=== PATIENT | female | born 1955 | race African-American/Black ===

== ENCOUNTER 2016-12-01 22:02 | Observation (INO) | payer MEDICARE, MEDICAID ==
[~2016-12-01] VITALS: Ht 167.6 cm; Wt 89.8 kg
[2016-12-01] MEDS ORDERED: SODIUM CHLORIDE 0.9% 1,000 ML IV ONE (22:59)
[2016-12-01] MEDS ORDERED: ONDANSETRON HCL 4MG/2ML VIAL IV ONE (23:00)
[2016-12-01] MEDS ORDERED: MORPHINE SULFATE 4 MG/ML CPJ (NOT FOR IM USE) IV ONE (23:00)
[2016-12-01 23:30] LABS: BASOPHILS % 0.7 % (0.0-2.0); EOSINOPHILS % 2.3 % (0.0-5.0); HEMOGLOBIN. 13.3 g/dL (12.0-16.0); MEAN CORPUSCULAR HEMOGLOBIN 26.9 pg (28.0-32.0); MEAN CORPUSCULAR VOLUME 81.2 fL (81.0-99.0); MEAN PLATELET VOLUME 7.2 fl (7.4-10.4); MONOCYTES % 9.1 % (2.0-8.0); NEUTROPHILS % 33.9 % (40.0-76.0); PLATELET 321 x1000/uL (130-400); RED BLOOD CELL COUNT 4.93 mill/uL (4.2-5.4); RED CELL DISTRIBUTION WIDTH 17.1 % (11.6-14.6)
[2016-12-01 23:37] LABS: PROTHROMBIN TIME 10.2 sec (9.4-11.6)
[2016-12-01 23:44] LABS: CARBON DIOXIDE 26 mEq/L (21-32); CHLORIDE 109 mEq/L (98-107)
[2016-12-02 00:35] LABS: CLARITY URINE CLEAR (CLEAR); COLOR URINE DARK YELLOW (YELLOW); GLUCOSE URINE NEGATIVE (NEGATIVE); KETONES URINE TRACE (NEGATIVE); LEUKOCYTE ESTERASE URINE NEGATIVE (NEGATIVE); NITRITE URINE NEGATIVE (NEGATIVE); OCCULT BLOOD URINE 2+ (NEGATIVE); PROTEIN URINE NEGATIVE (NEGATIVE); SPECIFIC GRAVITY URINE 1.035 (1.005-1.030)
[2016-12-02] MEDS ORDERED: MORPHINE SULFATE 4 MG/ML CPJ (NOT FOR IM USE) IV NR (01:30)
[2016-12-02] MEDS ORDERED: CLONIDINE 0.1MG TABLET ONE (03:10)
[2016-12-02] MEDS ORDERED: ONDANSETRON HCL 4MG/2ML VIAL IV PRN (03:15)
[2016-12-02] MEDS ORDERED: CLONIDINE 0.1MG TABLET PO PRN (03:15)
[2016-12-02] MEDS ORDERED: MORPHINE SULFATE 4 MG/ML CPJ (NOT FOR IM USE) IV PRN (03:15)
[2016-12-02 03:40] VITALS: BP 175/100
[2016-12-02] MEDS ORDERED: TRAM50TA3 PO (03:50)
[2016-12-02] MEDS ORDERED: ESOM40CA PO (03:53)
[2016-12-02] MEDS ORDERED: CLONIDINE 0.1MG TABLET PO NR (04:30)
[2016-12-02 05:00] VITALS: BP 175/100
[2016-12-02] MEDS: PANTOPRAZOLE 40MG DR TABLET PO SCH (07:04)
[2016-12-02 08:00] VITALS: BP 156/78
[2016-12-02] MEDS: AMLODIPINE 10MG TABLET PO SCH (09:00)
[2016-12-02] MEDS ORDERED: MEDICATION NOT ON FORMULARY EA (Esomeprazole Mag Trihydrate (Nexium) 1 CAP) PO SCH (09:00)
[2016-12-02] MEDS: ACETAMINOPHEN 650MG/20.3ML UDC PO PRN ×2 (11:47→23:44)
[2016-12-02 12:00] VITALS: BP 177/99
[2016-12-02 16:00] VITALS: BP 176/89
[2016-12-02 20:00] VITALS: BP 162/80
[2016-12-03] VITALS: BP 173/77
[2016-12-03 04:00] VITALS: BP 164/89
[2016-12-03] MEDS: ACETAMINOPHEN 650MG/20.3ML UDC PO PRN (07:04)
[2016-12-03] MEDS: PANTOPRAZOLE 40MG DR TABLET PO SCH (07:05)
[2016-12-03 08:00] VITALS: BP 166/88
[2016-12-03] MEDS: AMLODIPINE 10MG TABLET PO SCH (09:01)
[2016-12-03 12:00] VITALS: BP 194/96
== END 2016-12-03 13:00 | disposition home or self-care (01) ==
LOC: ER 22:02 → 6EST 23:46 → INTOOBSV 23:46 → ENRESERV 12-02 02:23
PROVIDERS: ADMIT Family Medicine Adult Medicine; ATTEND Internal Medicine
DX: M51.16 Intervertebral disc disorders with radiculopathy, lumbar region (principal); M48.06 Spinal stenosis, lumbar region; G89.29 Other chronic pain; M21.371 Foot drop, right foot; I10 Essential (primary) hypertension; Z96.651 Presence of right artificial knee joint
CPT/HCPCS: 36415; 51702; 71010; 72131; 72148; 80053; 81001; 85025; 85610; 93005; 96361; 96374; 96375; 96376; 99285; G0378; J2270; J2405; J7030; A4315

== ENCOUNTER 2019-02-15 17:42 | Emergency (ER) | payer MEDICARE, MEDICAID ==
[~2019-02-15] VITALS: Ht 170.2 cm; Wt 80.0 kg
[~2019-02-15 17:42] MED LIST: AMLO2.5T45 MT; ESOM40CA PO; TRAM50TA3 PO
[2019-02-15 17:43] VITALS: BP 174/98
== END 2019-02-15 20:07 | disposition left against medical advice (07) ==
LOC: ER 17:42
DX: Z53.21 Procedure and treatment not carried out due to patient leaving prior to being seen by health care provider (principal)

== ENCOUNTER 2020-10-19 17:07 | Emergency (ER) | payer MEDICARE, MEDICAID ==
[~2020-10-19] VITALS: Ht 167.6 cm; Wt 100.0 kg
[2020-10-19 17:33] LABS: CLARITY URINE CLEAR (CLEAR); COLOR URINE YELLOW (YELLOW); KETONES URINE NEGATIVE (NEGATIVE); LEUKOCYTE ESTERASE URINE NEGATIVE (NEGATIVE); NITRITE URINE NEGATIVE (NEGATIVE); OCCULT BLOOD URINE NEGATIVE (NEGATIVE); PH URINE 5.5 (4.5-8.0); PROTEIN URINE NEGATIVE (NEGATIVE); SPECIFIC GRAVITY URINE 1.005 (1.005-1.030); UROBILINOGEN URINE 0.2 E.U./dL (0.2-1.0)
[2020-10-19 19:45] LABS: BASOPHILS % 0.7 % (0.0-2.0); EOSINOPHILS % 0.6 % (0.0-5.0); HEMATOCRIT. 42.6 % (36.0-48.0); HEMOGLOBIN. 14.5 g/dL (12.0-16.0); LYMPHOCYTES % 33.4 % (20.0-50.0); MEAN CORPUSCULAR HEMOGLOBIN 26.3 pg (28.0-32.0); MEAN CORPUSCULAR VOLUME 77.5 fL (81.0-99.0); MONOCYTES % 4.6 % (2.0-8.0); NEUTROPHILS % 60.7 % (40.0-76.0); RED BLOOD CELL COUNT 5.49 mill/uL (4.2-5.4)
[2020-10-19 19:52] LABS: CHLORIDE 104 mEq/L (98-107)
[2020-10-19] MEDS: ACETAMINOPHEN 325MG TABLET PO ONE ×2 (19:56→20:08)
[2020-10-19 21:14] LABS: MEAN PLATELET VOLUME 7.4 fl (7.4-10.4)
[2020-10-19 21:15] LABS: PLATELET 334 x1000/uL (130-400)
[2020-10-19 21:35] VITALS: BP 164/99
== END 2020-10-19 21:40 | disposition home or self-care (01) ==
LOC: ER 17:07
DX: R05 Cough (principal); I10 Essential (primary) hypertension; Z98.84 Bariatric surgery status
CPT/HCPCS: 36415; 71045; 80053; 81003; 85025; 99285

== ENCOUNTER 2022-04-07 15:29 | Inpatient (IN) | payer MEDICARE, MEDICAID ==
[~2022-04-07] VITALS: Ht 167.6 cm; Wt 90.3 kg
[2022-04-07 17:52] LABS: BASOPHILS % 0.4 % (0.0-2.0); EOSINOPHILS % 0.6 % (0.0-5.0); LYMPHOCYTES % 24.7 % (20.0-50.0); MEAN CORPUSCULAR HEMOGLOBIN 26.1 pg (28.0-32.0); MEAN CORPUSCULAR VOLUME 81.8 fL (81.0-99.0); MEAN PLATELET VOLUME 7.7 fl (7.4-10.4); MONOCYTES % 6.9 % (2.0-8.0); NEUTROPHILS % 67.4 % (40.0-76.0); PLATELET 337 x1000/uL (130-400); RED BLOOD CELL COUNT 5.38 mill/uL (4.2-5.4); RED CELL DISTRIBUTION WIDTH 17.7 % (11.6-14.6)
[2022-04-07 17:59] LABS: PROTHROMBIN TIME 10.6 sec (9.6-11.0)
[2022-04-07 18:00] LABS: CHLORIDE 108 mEq/L (98-107)
[2022-04-07] MEDS ORDERED: ASPIRIN 325MG EC TABLET PO ONE (22:30)
[2022-04-07] MEDS ORDERED: CLONIDINE 0.1MG TABLET PO PRN (23:15)
[2022-04-07] MEDS ORDERED: ACETAMINOPHEN 325MG TABLET PO PRN (23:15)
[2022-04-07] MEDS ORDERED: DIPHENHYDRAMINE 50MG/ML VIAL IV PRN (23:15)
[2022-04-07] MEDS ORDERED: MAGNESIUM/ALUMINUM HYDROXIDE/SIMETHICONE 30ML UDC PO PRN (23:15)
[2022-04-07] MEDS ORDERED: ZOLPIDEM TARTRATE 5MG TABLET PO PRN (23:15)
[2022-04-08] MEDS: ONDANSETRON HCL 4MG/2ML INJ IV PRN (02:10)
[2022-04-08] MEDS: ACETAMINOPHEN 325MG TABLET PO PRN ×2 (02:10→08:37)
[2022-04-08] MEDS ORDERED: NALOXONE HCL 0.4MG/ML VIAL IV PRN (02:45)
[2022-04-08] MEDS ORDERED: METHOCARBAMOL 750MG TABLET PO PRN (03:00)
[2022-04-08] MEDS: TRAMADOL 50MG TABLET PO PRN ×3 (03:13→21:54)
[2022-04-08] MEDS: SODIUM CHLORIDE 0.9% INJ 3ML FLUSH IVF SCH ×2 (06:23→14:00)
[2022-04-08] MEDS: PANTOPRAZOLE 40MG DR TABLET PO SCH ×2 (06:30→21:53)
[2022-04-08] MEDS: AMLODIPINE 5MG TABLET PO SCH (08:37)
[2022-04-08] MEDS: HYDRALAZINE 20MG/ML VIAL IV PRN (08:38)
[2022-04-08] MEDS ORDERED: ENOXAPARIN 40MG/0.4ML SYR SUBCUT SCH (09:00)
[2022-04-08 10:00] VITALS: BP_SYST 147; BP_SYST 258; BP_DIAS 76
[2022-04-08 10:30] VITALS: BP 147/76
[2022-04-08 12:00] VITALS: BP 155/89
[2022-04-08] MEDS ORDERED: REGADENOSON 0.4 MG/5 ML IV ONE (15:00)
[2022-04-08 16:00] VITALS: BP 134/93
[2022-04-08] MEDS: DEXT 5%/0.45% NACL 1000ML 1,000 ML IV SCH (17:00)
[2022-04-08] MEDS: GUAIFENESIN 200MG/10ML SUGAR FREE UDC PO PRN (22:05)
[2022-04-09] VITALS: BP 167/90
[2022-04-09 04:00] VITALS: BP 181/98
[2022-04-09] MEDS: SODIUM CHLORIDE 0.9% INJ 3ML FLUSH IVF SCH ×4 (05:21→20:41)
[2022-04-09] MEDS: HYDRALAZINE 20MG/ML VIAL IV PRN ×2 (05:21→10:47)
[2022-04-09 07:25] LABS: CHLORIDE 110 mEq/L (98-107)
[2022-04-09 08:00] VITALS: BP 179/95
[2022-04-09] MEDS ORDERED: REGADENOSON 0.4 MG/5 ML IV ONE (08:08)
[2022-04-09] MEDS: PANTOPRAZOLE 40MG DR TABLET PO SCH ×2 (10:36→20:41)
[2022-04-09] MEDS: ENOXAPARIN 30MG/0.3ML SYR SUBCUT SCH ×2 (10:42→20:41)
[2022-04-09] MEDS: AMLODIPINE 5MG TABLET PO SCH (10:42)
[2022-04-09] MEDS: DEXT 5%/0.45% NACL 1000ML 1,000 ML IV SCH ×2 (10:48→18:31)
[2022-04-09] MEDS: ONDANSETRON HCL 4MG/2ML INJ IV PRN (10:49)
[2022-04-09 12:00] VITALS: BP 145/79
[2022-04-09] MEDS ORDERED: KETOROLAC 30MG/ML VIAL IV PRN (12:45)
[2022-04-09 16:00] VITALS: BP 155/82
[2022-04-09] MEDS ORDERED: HYDROMORPHONE HCL/PF 2MG/ML CPJ IM PRN (16:45)
[2022-04-09] MEDS ORDERED: DIPHENHYDRAMINE 50MG/ML VIAL IM PRN (16:45)
[2022-04-09 20:00] VITALS: BP 127/67
[2022-04-10] VITALS: BP 128/66
[2022-04-10] MEDS: GUAIFENESIN 200MG/10ML SUGAR FREE UDC PO PRN (03:54)
[2022-04-10 04:00] VITALS: BP 147/88
[2022-04-10] MEDS: SODIUM CHLORIDE 0.9% INJ 3ML FLUSH IVF SCH ×2 (05:12→13:37)
[2022-04-10] MEDS: DEXT 5%/0.45% NACL 1000ML 1,000 ML IV SCH (06:25)
[2022-04-10] MEDS: PANTOPRAZOLE 40MG DR TABLET PO SCH (06:25)
[2022-04-10] MEDS: AMLODIPINE 5MG TABLET PO SCH (08:17)
[2022-04-10] MEDS: ENOXAPARIN 30MG/0.3ML SYR SUBCUT SCH (08:18)
[2022-04-10 08:22] VITALS: BP 158/87
[2022-04-10 11:31] VITALS: BP 156/89
[2022-04-10] MEDS: ACETAMINOPHEN 325MG TABLET PO PRN (12:04)
[2022-04-10 16:05] VITALS: BP 103/76
[2022-04-10 16:14] VITALS: BP 103/76
[2022-04-10] MEDS ORDERED: FAMOTIDINE 20MG TABLET PO SCH (21:00)
== END 2022-04-10 17:45 | disposition home or self-care (01) | DRG 392 ==
LOC: ER 15:29 → MICUSO 23:07 → EDBEDREQTM 23:14 → EDBEDREQ 23:14 → 8WST 04-08 09:31
PROVIDERS: ADMIT Internal Medicine; ATTEND Internal Medicine
DX: K21.9 Gastro-esophageal reflux disease without esophagitis (principal); E86.0 Dehydration; Z20.822 Contact with and (suspected) exposure to COVID-19; I10 Essential (primary) hypertension; E66.9 Obesity, unspecified; Z68.32 Body mass index [BMI] 32.0-32.9, adult; Z98.84 Bariatric surgery status; Z79.899 Other long term (current) drug therapy; R51.9 Headache, unspecified
CPT/HCPCS: 36415; 71045; 78452; 80053; 83880; 84484; 85025; 87426; 87804; 93005; 93017; 93306; 97162; 97166; 99285; A9500; C1893; C9803; J0360; J1170; J1200; J1650; J1885; J2405; J2785

== ENCOUNTER 2022-06-03 13:46 | Emergency (ER) | payer MEDICARE, MEDICAID ==
[~2022-06-03] VITALS: Ht 167.6 cm; Wt 88.0 kg
[2022-06-03] MEDS ORDERED: ACETAMINOPHEN 325MG TABLET PO ONE (14:45)
[2022-06-03] MEDS ORDERED: LIDOCAINE 5% PATCH TOP ONE (14:45)
[2022-06-03] MEDS ORDERED: MORPHINE SULFATE 10 MG/ML CPJ IM ONE (14:45)
[2022-06-03 15:45] VITALS: BP 168/86
[2022-06-03] MEDS ORDERED: LIDOCAINE 5% PATCH TOP NR (15:45)
[2022-06-03] MEDS ORDERED: ACETAMINOPHEN 325MG TABLET PO NR (15:45)
[2022-06-03] MEDS ORDERED: MORPHINE SULFATE 10 MG/ML CPJ IM NR (15:45)
[2022-06-03] MEDS ORDERED: LIDO700A15 TP (19:44)
[2022-06-03] MEDS ORDERED: ACET-2708 MT (19:44)
[2022-06-03] MEDS ORDERED: BACL-141 MT (19:44)
[2022-06-03] MEDS ORDERED: SODIUM CHLORIDE 0.9% 250 ML IV NR (19:45)
== END 2022-06-03 20:00 | disposition home or self-care (01) ==
LOC: ER 13:46
DX: M54.42 Lumbago with sciatica, left side (principal); G89.29 Other chronic pain; I10 Essential (primary) hypertension; Z98.84 Bariatric surgery status; Z87.828 Personal history of other (healed) physical injury and trauma; Z98.890 Other specified postprocedural states
CPT/HCPCS: 72131; 73502; 82962; 96372; 99285; J2270

== ENCOUNTER → 2023-06-30 | Day surgery (SDC) | payer MEDICARE, MEDICAID ==
[~2023-06-30] VITALS: Ht 167.6 cm; Wt 88.5 kg
[~2023-06-30] MED LIST changes: +ALBU4TAB6 NEB; -AMLO2.5T45 MT; +AMLO2.5T45 PO; +CEFAZOLIN SODIUM 1000MG/VIAL ONE; +CETI10TA6 PO; +DEXAMETHASONE 4MG/ML 1ML VIAL ONE; +EPHEDRINE SULFATE 50MG/ML VIAL ONE; -ESOM40CA PO; +FENTANYL CITRATE/PF 50MCG/ML 2ML VIAL ONE; +GARL1000 PO; +GLYCOPYRROLATE 0.2 MG/ML 2ML VIAL ONE; +LOSA25TA26 PO; +MEPERIDINE HCL/PF 25MG/ML CPJ IV PRN; +METH-773 PO; +MIDAZOLAM HCL 2 MG/2 ML VIAL ONE; +OMEP40CA20 PO; +ONDANSETRON HCL 4MG/2ML INJ IV PRN; +ONDANSETRON HCL 4MG/2ML INJ ONE; +PROPOFOL 200MG/20ML VIAL IV ONE; +SUCCINYLCHOLINE CHLORIDE 200MG/10ML IV ONE; +VITAMIN D PO; +[UNRECOGNIZED DRUG - REMARK] PO
[2023-06-30] MEDS: LACTATED RINGERS 1,000 ML IV SCH (08:37)
[2023-06-30] MEDS: FENTANYL CITRATE/PF 50MCG/ML 2ML VIAL IV PRN (10:54)
[2023-06-30] MEDS: HYDROMORPHONE HCL/PF 2MG/ML CPJ IV PRN (11:22)
[2023-06-30 12:03] VITALS: BP 123/74; PULSE 91; RESP 15
== END | disposition home or self-care (01) ==
LOC: OR 07:11
PROVIDERS: ATTEND Obstetrics & Gynecology Obstetrics
DX: N95.0 Postmenopausal bleeding (principal); N84.0 Polyp of corpus uteri; N84.1 Polyp of cervix uteri; I10 Essential (primary) hypertension; M19.90 Unspecified osteoarthritis, unspecified site; Z79.899 Other long term (current) drug therapy; Z98.890 Other specified postprocedural states; Z82.49 Family history of ischemic heart disease and other diseases of the circulatory system; Z83.3 Family history of diabetes mellitus
CPT/HCPCS: 88305; 58558; J3010; J0690; J1100; J3490 ×2; J2250; J2405; J2704; J0330; J1170; A4217 ×3; Z7610 ×17

== ENCOUNTER 2024-09-06 23:13 | Inpatient (IN) | payer MEDICARE, MEDICAID ==
[~2024-09-06] VITALS: Ht 167.6 cm; Wt 60.9 kg
[~2024-09-06 23:13] MED LIST changes: -CEFAZOLIN SODIUM 1000MG/VIAL ONE; -DEXAMETHASONE 4MG/ML 1ML VIAL ONE; -EPHEDRINE SULFATE 50MG/ML VIAL ONE; -FENTANYL CITRATE/PF 50MCG/ML 2ML VIAL ONE; -GARL1000 PO; +GARL10002 PO; -GLYCOPYRROLATE 0.2 MG/ML 2ML VIAL ONE; -MEPERIDINE HCL/PF 25MG/ML CPJ IV PRN; -MIDAZOLAM HCL 2 MG/2 ML VIAL ONE; -ONDANSETRON HCL 4MG/2ML INJ IV PRN; -ONDANSETRON HCL 4MG/2ML INJ ONE; -PROPOFOL 200MG/20ML VIAL IV ONE; -SUCCINYLCHOLINE CHLORIDE 200MG/10ML IV ONE
[2024-09-07 01:45] LABS: CLARITY URINE CLEAR (CLEAR); COLOR URINE YELLOW (YELLOW); GLUCOSE URINE NEGATIVE (NEGATIVE); KETONES URINE NEGATIVE (NEGATIVE); LEUKOCYTE ESTERASE URINE NEGATIVE (NEGATIVE); NITRITE URINE NEGATIVE (NEGATIVE); OCCULT BLOOD URINE NEGATIVE (NEGATIVE); PH URINE 5.5 (4.5-8.0); PROTEIN URINE NEGATIVE (NEGATIVE); SPECIFIC GRAVITY URINE 1.004 (1.005-1.030)
[2024-09-07 01:53] LABS: *AMPHETAMINES SCREEN URINE NEGATIVE (NEGATIVE); *BARBITURATES SCREEN URINE NEGATIVE (NEGATIVE); *BENZODIAZEPINES SCREEN URINE NEGATIVE (NEGATIVE); *COCAINE SCREEN URINE NEGATIVE (NEGATIVE); CANNABINOID URINE SCREEN NEGATIVE (NEGATIVE); ECSTASY MDMA SCREEN URINE NEGATIVE (NEGATIVE); METHADONE URINE SCREEN NEGATIVE (NEGATIVE); OPIATES URINE SCREEN NEGATIVE (NEGATIVE); PHENCYCLIDINE URINE SCREEN NEGATIVE (NEGATIVE)
[2024-09-07] MEDS: SODIUM CHLORIDE 0.9% 500 ML IV NR (02:22)
[2024-09-07 02:29] LABS: BASOPHILS % 0.8 % (0.0-2.0); DIFFERENTIAL COMMENT 0; EOSINOPHILS % 1.4 % (0.0-5.0); HEMATOCRIT. 40.4 % (36.0-48.0); HEMOGLOBIN. 13.7 g/dL (12.0-16.0); LYMPHOCYTES % 57.1 % (20.0-50.0); MEAN CORPUSCULAR HEMOGLOBIN 26.4 pg (28.0-32.0); MEAN CORPUSCULAR VOLUME 77.6 fL (81.0-99.0); MEAN PLATELET VOLUME 7.8 fl (7.4-10.4); MONOCYTES % 8.6 % (2.0-8.0); NEUTROPHILS % 32.1 % (40.0-76.0); PLATELET 337 x1000/uL (130-400); RED BLOOD CELL COUNT 5.21 mill/uL (4.2-5.4); RED CELL DISTRIBUTION WIDTH 19.5 % (11.6-14.6); WHITE BLOOD COUNT 6.5 x1000/uL (4.5-11.0)
[2024-09-07 02:30] LABS: CHLORIDE 103 mEq/L (98-107); SODIUM 142 mEq/L (136-145)
[2024-09-07 02:31] LABS: CARBON DIOXIDE 28 mEq/L (21-32)
[2024-09-07 02:36] LABS: CREATININE 0.8 mg/dL (0.6-1.0); ETHANOL BLOOD < 10 mg/dL (<10); GLUCOSE 80 mg/dL (70-105); UREA NITROGEN BLOOD 6 mg/dL (9-23)
[2024-09-07 02:37] LABS: PARTIAL THROMBOPLASTIN TIME 27.9 sec (23.4-31.0); PROTHROMBIN TIME 10.8 sec (9.6-11.0)
[2024-09-07 03:00] LABS: TROPONIN I HIGH SENSITIVITY 56 ng/L (3.0-34)
[2024-09-07] MEDS: MORPHINE SULFATE 4 MG/ML INJ (FOR IV/IM USE) IV ONE (04:03)
[2024-09-07] MEDS: ASPIRIN 325MG EC TABLET PO ONE (04:03)
[2024-09-07] MEDS: IOHEXOL-300 100 ML BOTTLE ONE (04:23)
[2024-09-07] MEDS: POTASSIUM CHLORIDE 20MEQ/PACKET PO NR ×2 (04:44→10:46)
[2024-09-07] MEDS ORDERED: DOCUSATE SODIUM 100MG CAPSULE PO PRN (09:15)
[2024-09-07] MEDS ORDERED: MAGNESIUM/ALUMINUM HYDROXIDE/SIMETHICONE 30ML UDC PO PRN (09:15)
[2024-09-07] MEDS ORDERED: CLONIDINE 0.1MG TABLET PO PRN (09:15)
[2024-09-07] MEDS ORDERED: GUAIFENESIN 200MG/10ML SUGAR FREE UDC PO PRN (09:15)
[2024-09-07] MEDS ORDERED: ACETAMINOPHEN 325MG TABLET PO PRN ×2 (09:15)
[2024-09-07] MEDS ORDERED: IPRATROPIUM/ALBUTEROL 0.5-3(2.5)MG/3ML NEB HHN PRN (09:15)
[2024-09-07 10:47] VITALS: BP 149/91; PULSE 67; RESP 16; TEMP 36.3; O2SAT 99
[2024-09-07 10:59] VITALS: BP 149/91; PULSE 67; RESP 16; TEMP 36.3
[2024-09-07] MEDS: AMLODIPINE 2.5MG TABLET PO SCH (12:20)
[2024-09-07] MEDS: LOSARTAN 50 MG TABLET PO SCH (12:21)
[2024-09-07] MEDS: LIDOCAINE 5% PATCH TOP SCH (14:37)
[2024-09-07] MEDS ORDERED: TRAM50TA3 PO (15:23)
[2024-09-07] MEDS ORDERED: NALOXONE HCL 0.4MG/ML VIAL IV PRN (15:45)
[2024-09-07 16:00] VITALS: BP 151/87; PULSE 56; RESP 16; TEMP 36.4; O2SAT 100
[2024-09-07 20:00] VITALS: BP 154/88; PULSE 64; RESP 18; TEMP 36.8; O2SAT 100
[2024-09-07 22:37] LABS: CREATINE KINASE MB FRACTION < 0.5 ng/mL (0.5-3.6)
[2024-09-07 22:38] LABS: CREATINE KINASE 34 IU/L (34-145)
[2024-09-07 22:59] LABS: TROPONIN I HIGH SENSITIVITY 56 ng/L (3.0-34)
[2024-09-07] MEDS: TRAMADOL 50MG TABLET PO PRN (23:06)
[2024-09-07] MEDS: ONDANSETRON HCL 4MG/2ML INJ IV PRN (23:07)
[2024-09-08] VITALS: BP 149/75; PULSE 55; RESP 18; TEMP 35.8; O2SAT 100
[2024-09-08 01:40] LABS: CREATINE KINASE MB FRACTION < 0.5 ng/mL (0.5-3.6)
[2024-09-08 01:41] LABS: CREATINE KINASE 32 IU/L (34-145)
[2024-09-08 03:07] LABS: TROPONIN I HIGH SENSITIVITY 60 ng/L (3.0-34)
[2024-09-08 04:00] VITALS: BP 149/82; PULSE 66; RESP 19; TEMP 35.9; O2SAT 99
[2024-09-08 08:00] VITALS: BP 156/85; PULSE 59; RESP 17; TEMP 36.5; O2SAT 97
[2024-09-08] MEDS: PANTOPRAZOLE SODIUM 40 MG/VIAL IV SCH (08:13)
[2024-09-08 08:23] LABS: BASOPHILS % 0.5 % (0.0-2.0); DIFFERENTIAL COMMENT 0; EOSINOPHILS % 3.4 % (0.0-5.0); HEMATOCRIT. 34.6 % (36.0-48.0); HEMOGLOBIN. 11.6 g/dL (12.0-16.0); LYMPHOCYTES % 65.4 % (20.0-50.0); MEAN CORPUSCULAR HEMOGLOBIN 25.8 pg (28.0-32.0); MEAN CORPUSCULAR HGB CONC 33.6 g/dL (31.0-37.0); MEAN PLATELET VOLUME 7.7 fl (7.4-10.4); MONOCYTES % 10.2 % (2.0-8.0); NEUTROPHILS % 20.5 % (40.0-76.0); PLATELET 265 x1000/uL (130-400); RED BLOOD CELL COUNT 4.49 mill/uL (4.2-5.4); RED CELL DISTRIBUTION WIDTH 18.9 % (11.6-14.6); WHITE BLOOD COUNT 4.1 x1000/uL (4.5-11.0)
[2024-09-08 08:27] LABS: CHLORIDE 107 mEq/L (98-107); POTASSIUM 3.6 mEq/L (3.5-5.1); SODIUM 140 mEq/L (136-145)
[2024-09-08 08:28] LABS: CARBON DIOXIDE 28 mEq/L (21-32)
[2024-09-08 08:29] LABS: CALCIUM 8.5 mg/dL (8.7-10.4)
[2024-09-08 08:33] LABS: CREATININE 0.7 mg/dL (0.6-1.0); GLUCOSE 79 mg/dL (70-105); UREA NITROGEN BLOOD < 5 mg/dL (9-23)
[2024-09-08 08:34] LABS: CREATINE KINASE MB FRACTION 0.5 ng/mL (0.5-3.6)
[2024-09-08 08:35] LABS: CREATINE KINASE 25 IU/L (34-145)
[2024-09-08 08:41] LABS: TROPONIN I HIGH SENSITIVITY 55 ng/L (3.0-34)
[2024-09-08 12:00] VITALS: BP 125/92; PULSE 64; RESP 16; TEMP 36.3; O2SAT 100
[2024-09-08 16:00] VITALS: BP 112/64; PULSE 61; RESP 17; TEMP 36.3; O2SAT 100
[2024-09-08 20:00] VITALS: BP 144/75; PULSE 57; RESP 19; TEMP 36.6; O2SAT 100
[2024-09-09] VITALS: BP 127/59; PULSE 62; RESP 19; TEMP 36.7; O2SAT 100
[2024-09-09 04:00] VITALS: BP 156/83; PULSE 52; RESP 20; TEMP 36.4; O2SAT 100
[2024-09-09 08:00] VITALS: BP 173/93; PULSE 53; RESP 18; TEMP 36.5; O2SAT 100
[2024-09-09 08:49] LABS: HEMATOCRIT 35.7 % (36.0-48.0); HEMOGLOBIN 11.9 g/dL (12.0-16.0); MEAN CORPUSCULAR HEMOGLOBIN 25.6 pg (28.0-32.0); MEAN CORPUSCULAR HGB CONC 33.3 g/dL (31.0-37.0); MEAN CORPUSCULAR VOLUME 76.8 fL (81.0-99.0); PLATELET 277 x1000/uL (130-400); RED BLOOD CELL COUNT 4.65 mill/uL (4.2-5.4); RED CELL DISTRIBUTION WIDTH 19.8 % (11.6-14.6); WHITE BLOOD COUNT 4.5 x1000/uL (4.5-11.0)
[2024-09-09 09:00] LABS: CARBON DIOXIDE 28 mEq/L (21-32); CHLORIDE 106 mEq/L (98-107); SODIUM 139 mEq/L (136-145)
[2024-09-09 09:01] LABS: CALCIUM 8.7 mg/dL (8.7-10.4)
[2024-09-09 09:05] LABS: CREATININE 0.7 mg/dL (0.6-1.0)
[2024-09-09 09:06] LABS: ALANINE AMINOTRANSFERASE < 7 IU/L (10-49); GLUCOSE 75 mg/dL (70-105); UREA NITROGEN BLOOD < 5 mg/dL (9-23)
[2024-09-09 09:07] LABS: ASPARTATE AMINOTRANSFERASE 13 IU/L (<34)
[2024-09-09 09:08] LABS: BILIRUBIN TOTAL 0.7 mg/dL (0.1-1.0); PROTEIN TOTAL 4.9 g/dL (6.0-8.3)
[2024-09-09] MEDS: LOSARTAN 50 MG TABLET PO SCH (10:45)
[2024-09-09 12:00] VITALS: BP 164/91; PULSE 55; RESP 18; TEMP 36.2; O2SAT 99
[2024-09-09 16:00] VITALS: BP 159/111; PULSE 84; RESP 17; TEMP 36.2; O2SAT 97
[2024-09-09 19:04] VITALS: BP 140/62; PULSE 78; TEMP 97.2; O2SAT 98
[2024-09-09] MEDS ORDERED: ATORVASTATIN CALCIUM 40MG TABLET PO SCH (21:00)
[2024-09-10] MEDS ORDERED: AMLODIPINE 10MG TABLET PO SCH (09:00)
== END 2024-09-09 20:18 | disposition home health service (06) | DRG 641 ==
LOC: ER 23:13 → 6WST 09-07 03:28 → ENRESERV 09-07 06:30
PROVIDERS: ADMIT Internal Medicine; ATTEND Internal Medicine
DX: E87.6 Hypokalemia (principal); I47.10 Supraventricular tachycardia, unspecified; I24.89 Other forms of acute ischemic heart disease; I42.9 Cardiomyopathy, unspecified; I11.0 Hypertensive heart disease with heart failure; I50.9 Heart failure, unspecified; R00.2 Palpitations; K44.9 Diaphragmatic hernia without obstruction or gangrene; E78.5 Hyperlipidemia, unspecified; K21.9 Gastro-esophageal reflux disease without esophagitis; I49.3 Ventricular premature depolarization; J45.909 Unspecified asthma, uncomplicated; Z79.899 Other long term (current) drug therapy; Z90.710 Acquired absence of both cervix and uterus; Z98.84 Bariatric surgery status
CPT/HCPCS: 36415; 71045; 74177; 80048; 80053; 80061; 80305; 80320; 81003; 82550; 82553; 83605; 83880; 84443; 84484; 85025; 85027; 86850; 86900; 93005; 93306; 93970; 99285; J2270; J2405; J2470; Q9967; G0480

== ENCOUNTER → 2025-03-21 | Outpatient (CLI) | payer MEDICARE, MEDICAID ==
[~2025-03-21] MED LIST changes: +IBUP-1455 MT
[2025-03-21 12:18] LABS: BASOPHILS % 0.7 % (0.0-2.0); EOSINOPHILS % 0.8 % (0.0-5.0); HEMATOCRIT. 37.9 % (36.0-48.0); HEMOGLOBIN. 12.6 g/dL (12.0-16.0); LYMPHOCYTES % 49.7 % (20.0-50.0); MEAN PLATELET VOLUME 7.2 fl (7.4-10.4); MONOCYTES % 9.2 % (2.0-8.0); NEUTROPHILS % 39.6 % (40.0-76.0); PLATELET 351 x1000/uL (130-400); RED BLOOD CELL COUNT 4.61 mill/uL (4.2-5.4); RED CELL DISTRIBUTION WIDTH 18.3 % (11.6-14.6)
[2025-03-21 12:34] LABS: CREATININE 0.8 mg/dL (0.6-1.0); UREA NITROGEN BLOOD 7 mg/dL (9-23)
[2025-03-21 12:35] LABS: PROTEIN TOTAL 5.9 g/dL (6.0-8.3)
[2025-03-21 12:36] LABS: ASPARTATE AMINOTRANSFERASE 12 IU/L (<34); BILIRUBIN TOTAL 0.6 mg/dL (0.1-1.0)
[2025-03-21 12:38] LABS: INR 1.0
[2025-03-21 12:57] LABS: CLARITY URINE TURBID (CLEAR); COLOR URINE ORANGE (YELLOW); GLUCOSE URINE NEGATIVE (NEGATIVE); KETONES URINE NEGATIVE (NEGATIVE); LEUKOCYTE ESTERASE URINE 1+ (NEGATIVE); NITRITE URINE POSITIVE (NEGATIVE); OCCULT BLOOD URINE NEGATIVE (NEGATIVE); PH URINE 5.0 (4.5-8.0); PROTEIN URINE TRACE (NEGATIVE); SPECIFIC GRAVITY URINE 1.022 (1.005-1.030); UROBILINOGEN URINE 1.0 E.U./dL (0.2-1.0)
[2025-03-21 13:20] LABS: BACTERIA URINE 1+; SQUAMOUS EPITHELIAL CELL URINE FEW /lpf (RARE/1+)
[2025-03-21 13:21] LABS: AMORPHOUS SEDIMENT URINE 4+ /lpf; RBC URINE NONE SEEN /hpf (0-2); WBC URINE NONE SEEN /hpf (0-2)
== END | disposition home or self-care (01) ==
LOC: LAB 11:21
PROVIDERS: ATTEND Specialist
DX: D68.9 Coagulation defect, unspecified (principal); R63.4 Abnormal weight loss
CPT/HCPCS: 36415; 80053; 81001; 81003; 85025

== ENCOUNTER → 2025-03-28 | Day surgery (SDC) | payer MEDICARE, MEDICAID ==
[~2025-03-28] VITALS: Ht 167.6 cm; Wt 54.4 kg
[~2025-03-28] MED LIST changes: +ACETAMINOPHEN 1,000MG/100ML PREMIX IV PRN; +ACETAMINOPHEN 1000MG/100ML 100 ML IV ONE; +ACETAMINOPHEN 1000MG/100ML 100 ML IV PRN; +DEXAMETHASONE 4MG/ML 1ML VIAL ONE; +FAMOTIDINE 20MG/2ML VIAL IV PRN; +FENTANYL CITRATE/PF 50MCG/ML 2ML VIAL ONE; +HYDRALAZINE 20MG/ML VIAL IV PRN; +KETAMINE HCL 50 MG/ML 10ML ONE; +LABETALOL 5MG/ML 4ML INJ IV PRN; +LACTATED RINGERS 1,000 ML IV SCH; +MEPERIDINE HCL/PF 25MG/ML CPJ IV PRN; +MIDAZOLAM HCL 2 MG/2 ML VIAL ONE; +ONDANSETRON HCL 4MG/2ML INJ IV PRN; +PROPOFOL 200MG/20ML VIAL IV ONE
[2025-03-28 11:44] VITALS: BP 164/79; PULSE 77; RESP 59
[2025-03-28] MEDS: HYDROMORPHONE HCL/PF 1MG/ML INJ IV PRN (11:44)
== END | disposition home or self-care (01) ==
LOC: OR 06:26
PROVIDERS: ATTEND Obstetrics & Gynecology Obstetrics
DX: N85.00 Endometrial hyperplasia, unspecified (principal); N95.0 Postmenopausal bleeding; N85.8 Other specified noninflammatory disorders of uterus; D26.1 Other benign neoplasm of corpus uteri; I49.1 Atrial premature depolarization; Z79.899 Other long term (current) drug therapy; Z98.890 Other specified postprocedural states
CPT/HCPCS: 58558; 88304; 88305; 93005; J3010; J0131; J1100; J3490; J2250; J2704; J1171; A4217